=== PATIENT | male | born 1995 ===

== ENCOUNTER 2020-12-07 18:11 | Emergency (ER) | payer OTHER ==
[~2020-12-07] VITALS: Ht 180.3 cm; Wt 112.9 kg
[2020-12-07] MEDS ORDERED: PROAIR HFA8.5 GM (18:53)
[2020-12-08] MEDS ORDERED: MUCINEX DM ER1 EAC1 PO (02:57)
[2020-12-08] MEDS ORDERED: ZYRTEC10 MG PO (02:57)
[2020-12-08] MEDS ORDERED: EMVERM100 MG PO (02:57)
[2020-12-08] MEDS ORDERED: LEVALBUTER1.25 MG/3 IH (02:57)
[2020-12-08] MEDS ORDERED: LEVSIN0.125 MG PO (02:58)
[2020-12-08] MEDS ORDERED: PEPCID AC20 MG PO (02:58)
== END 2020-12-08 03:30 | disposition home or self-care (01) ==
LOC: ER 18:11 → EDBD 19:39 → ER 12-08 03:30
DX: R10.31 Right lower quadrant pain (principal); J06.9 Acute upper respiratory infection, unspecified